=== PATIENT | female | born 1955 | race Caucasian/White ===

== ENCOUNTER → 2016-05-04 | Outpatient (CLI) | payer BC ==
--- NOTE | 2016-05-08 11:21 | MM ---
Reason for exam: screening (asymptomatic). History: Patient is postmenopausal, history of other cancer, and had first child at age 44. Benign stereotactic core biopsy of the left breast, 2004. Benign excisional biopsy of the right breast, 1999. Physical Findings: A clinical breast exam by your physician is recommended on an annual basis and results should be correlated with mammographic findings. MG Screening Mammo w CAD Bilateral CC and MLO view(s) were taken. The breast tissue is heterogeneously dense. This may lower the sensitivity of mammography. Finding: There are typically benign calcifications in both breasts. Previous mammotome biopsy in the left breast. No significant changes in finding. ASSESSMENT: Benign, BI-RAD 2 RECOMMENDATION: Routine screening mammogram of both breasts in 1 year.
== END | disposition home or self-care (01) ==
LOC: RADMAMWWP 06:54
PROVIDERS: ATTEND Obstetrics & Gynecology
DX: Z12.31 Encounter for screening mammogram for malignant neoplasm of breast (principal); Z85.820 Personal history of malignant melanoma of skin

== ENCOUNTER → 2016-06-08 | Outpatient (CLI) | payer BC ==
--- NOTE | 2016-06-08 14:44 | CT ---
EXAMINATION TYPE: CT ChestAbdPelvis wo/w con DATE OF EXAM: 06/08/2016 2:14 PM COMPARISON: Prior CT chest abdomen pelvis 01 October 2015 HISTORY: Restaging of Stage [address] DLP: 2796.8 mGycm Automated exposure control for dose reduction was used. CONTRAST: CT scan of the chest, abdomen and pelvis is performed and without and with IV Contrast, patient injec hema with 100 mL of Omnipaque 300. FINDINGS: LUNGS: The lungs are grossly clear, there is no concerning parenchymal mass or nodule identified. T here is no pleural effusion or pneumothorax seen. The tracheobronchial tree is patent. MEDIASTINUM: There are no greater than 1 cm hilar or mediastinal lymph nodes. No pericardial effusi on is seen. AORTA: No significant abnormality is seen. OTHER: No additional significant abnormality is seen. LIVER/GB: The liver shows low attenuation as on previous exam likely due to fatty infiltration, gallb ladder is normal, the liver is enlarged. PANCREAS: No significant abnormality is seen. SPLEEN: No significant abnormality is seen. ADRENALS: No significant abnormality is seen. KIDNEYS: No significant abnormality is seen. REPRODUCTIVE ORGANS: No gross abnormality seen. BOWEL: There is some thickening of the sigmoid colon which is indeterminate, difficult to exclude a mucosal lesion, there is diverticular change. There is no bowel obstruction FREE AIR: No Free Air visible. ASCITES: None seen. RETROPERITONEAL ADENOPATHY: No retroperitoneal adenopathy is seen. LYMPH NODES: Patient shows postoperative change the proximal left lower extremity compatible with nod e sampling extends into the region of the left external iliac chain URINARY BLADDER: No significant abnormality is seen. PELVIC ADENOPATHY: None visualized. OSSEOUS STRUCTURES: No significant abnormality is seen. IMPRESSION: Postop changes. Nonspecific rectosigmoid, sigmoid colonic wall thickening. Fatty infiltra tion of the liver, hepatomegaly. Additional findings above.
--- NOTE | 2016-06-08 14:52 | CT ---
CT of the left lower extremity HISTORY: Restaging of stage III melanoma, C43.9, Z 85.820 Helical acquisition obtained through the left leg pre and post intravenous contrast administration, tye avila received 100 cc Omni 300 IV and correlated to prior dated September Some subcutaneous edema changes present at the level of the patellar tendon insertion similar to prio r exam. No lytic or blastic bone lesion is evident. No fracture or dislocation. The subcutaneous fat areas of increased attenuation show a similar appearance and distribution. There is no abnormal enhan cement following contrast administration. Popliteal artery is patent, trifurcation vasculature is pat ent. There is no evident adenopathy. IMPRESSION: Stable findings, increased attenuation within the subcutaneous fat may be postprocedural or posttreatment, no abnormal enhancement.
== END | disposition home or self-care (01) ==
LOC: RADCTMAIN 12:58
PROVIDERS: ATTEND Internal Medicine
DX: K76.0 Fatty (change of) liver, not elsewhere classified (principal); R16.0 Hepatomegaly, not elsewhere classified; K63.89 Other specified diseases of intestine; C43.9 Malignant melanoma of skin, unspecified; Z98.890 Other specified postprocedural states; Z85.820 Personal history of malignant melanoma of skin
CPT/HCPCS: 73702; 71270; 74178; Q9967

== ENCOUNTER 2016-09-03 11:51 | Emergency (ER) | payer BC ==
--- NOTE | 2016-09-03 12:08 | ED ---
General Adult HPI - General Chief complaint: Extremity Problem,Nontraumatic Stated complaint: leg swelling Time Seen by Provider: 09/03/16 12:03 Source: patient, RN notes reviewed Mode of arrival: wheelchair Limitations: no limitations - History of Present Illness Initial comments: Patient 61-year-old female who presents emergency room today sent by medics breast rule out DVT. Patient does admit that she's noticed some tightness to the back of the left calf over the last 4 days. She states she thought was possible muscular. She admits that last night she saw some redness to the back area. States improved today. She does admit that she has some chronic swelling to his leg from previous surgeries. Patient denies any other complaints or symptoms. Denies any known injury or trauma. Denies any history of DVT. Patient denies any recent fever, chills, shortness of breath, chest pain , back pain, abdominal pain, nausea or vomiting, numbness or tingling, dysuria or hematuria, constipation or diarrhea, headaches or visual changes, or any other complaints. - Related Data Home Medications Medication Instructions Recorded Confirmed Calcium Carbonate/Vitamin D3 1 cap PO HS 09/03/16 09/03/16 [Calcium 500-Vit D3 600 Tablet] Cetirizine HCl [Zyrtec] 10 mg PO HS 09/03/16 09/03/16 Losartan Pot. (Unknown Dose) 1 tab PO HS 09/03/16 09/03/16 amLODIPine [Norvasc] 5 mg PO HS 09/03/16 09/03/16 valACYclovir [Valtrex] 500 mg PO HS 09/03/16 09/03/16 Previous Rx's Medication Instructions Recorded Cephalexin [Keflex] 500 mg PO Q12HR 10 Days 09/03/16 Allergies Allergy/AdvReac Type Severity Reaction Status Date / Time acetaminophen [From Vicodin] Allergy Rash/Hives Verified 09/03/16 12:21 hydrocodone [From Vicodin] Allergy Rash/Hives Verified 09/03/16 12:21 Review of Systems ROS Statement: Those systems with pertinent positive or pertinent negative responses have been documented in the HPI. ROS Other: All systems not noted in ROS Statement are negative. Past Medical History Past Medical History: Cancer, Hypertension Additional Past Medical History / Comment(s): melanoma History of Any Multi-Drug Resistant Organisms: None Reported Past Surgical History: Appendectomy, Section Past Psychological History: No Psychological Hx Reported Smoking Status: Never smoker Past Alcohol Use History: Occasional Past Drug Use History: None Reported General Exam - General Exam Comments Initial Comments: General: The patient is awake and alert, in no distress, and does not appear acutely ill. Neck: The neck is supple, there is no tenderness or JVD. Cardiovascular: There is a regular rate and rhythm. No murmur, rub or gallop is appreciated. Respiratory: Lungs are clear to auscultation, respirations are non-labored, breath sounds are equal. No wheezes, stridor, rales, or rhonchi. Musculoskeletal: Patient does have some swelling appreciated when compared bilaterally. No tenderness. No redness. Full range of motion. No bony tenderness. Sensation is intact pulses equal bilateral 2+. Neurological: A&O x 3. CN II-XII intact, There are no obvious motor or sensory deficits. Coordination appears grossly intact. Speech is normal. Skin: Skin is warm and dry and no rashes or lesions are noted. Psychiatric: Normal mood and affect. Limitations: no limitations Course Vital Signs 09/03/16 11:57 Temperature 97.8 F Pulse Rate 77 Respiratory 20 Rate Blood Pressure 139/66 O2 Sat by Pulse 98 Oximetry Medical Decision Making - Medical Decision Making Ultrasound negative for any evidence of DVT. Results were discussed with patient. She does have some mild redness to the medial aspect of the left calf. Patient will be started on Keflex cover for cellulitis. Advised to follow-up with family doctor over the next 2 days return here to the emergency room if any symptoms increase or worsen. Patient states understanding. Disposition Clinical Impression: Cellulitis Disposition: HOME SELF-CARE Condition: Good Instructions: Cellulitis (ED) Additional Instructions: Please use medication as discussed. Please follow-up with family doctor in the next 2 days of symptoms have not improved. Please return to emergency room if the symptoms increase or worsen or for any other concerns. Prescriptions: Cephalexin [Keflex] 500 mg PO Q12HR 10 Days Referrals: Tip Mendez MD [Primary Care Provider] - 1-2 days Time of Disposition: 13:21
--- NOTE | 2016-09-03 13:16 | US ---
EXAMINATION TYPE: US venous doppler duplex LE LT DATE OF EXAM: 09/03/2016 1:09 PM COMPARISON: NONE CLINICAL HISTORY: 61-year-old female Pain. Left leg pain and swelling x couple days SIDE PERFORMED: Left TECHNIQUE: The lower extremity deep venous system is examined utilizing real time linear array sonog lauren with graded compression, doppler sonography and color-flow sonography. FINDINGS: VESSELS IMAGED: External Iliac Vein (EIV) Common Femoral Vein Deep Femoral Vein Greater Saphenous Vein * Femoral Vein Popliteal Vein Small Saphenous Vein * Proximal Calf Veins (* superficial vessels) Left Leg: Appears negative for DVT IMPRESSION: No evidence for DVT within the left lower extremity imaged from the groin to the upper calf.
[2016-09-03 13:36] VITALS: BP 134/63; PULSE 68; RESP 18; TEMP 96.8
== END 2016-09-03 13:33 | disposition home or self-care (01) ==
LOC: EC 11:51
DX: L03.116 Cellulitis of left lower limb (principal); I10 Essential (primary) hypertension; Z85.820 Personal history of malignant melanoma of skin; Z79.899 Other long term (current) drug therapy; Z88.5 Allergy status to narcotic agent
CPT/HCPCS: 99283

== ENCOUNTER → 2016-12-11 | Outpatient (CLI) | payer BC ==
--- NOTE | 2016-12-11 12:36 | CT ---
EXAMINATION TYPE: CT lower extremity LT w con DATE OF EXAM: 12/11/2016 COMPARISON: 06/08/2016 HISTORY: Metastatic Melanoma CT DLP: 0174 includes Chest, Abd, and Pelvis as well mGycm Automated exposure control for dose reduction was used. CONTRAST: Performed with IV Contrast, patient injected with 100 mL of Omnipaque 300. FINDINGS: Prepatellar subcutaneous edema and infrapatellar subcutaneous edema is unchanged from the prior exam. Numerous surgical clips are seen in the most cephalad portion of the [id number] surrounding the e xternal iliac chain and extends into the femoral region and subcutaneous tissues of the mid thigh wit h linear scarring and skin defect from probable prior lymph node dissection. The arterial vasculature is patent. No adenopathy is identified. Mild degenerative changes of the left femoral acetabular russ nt are seen. No suspicious osseous lesion is present. No evidence of fracture or dislocation. IMPRESSION: 1. POSTSURGICAL CHANGES OF THE LEFT INGUINAL AND FEMORAL REGION WITH NO EVIDENCE OF RECURRENT ADENOPA THY, NEW MASS OR OSSEOUS METASTATIC LESION. 2. UNCHANGED NONSPECIFIC PREPATELLAR AND INFRAPATELLAR SUBCUTANEOUS EDEMA.
--- NOTE | 2016-12-11 12:52 | CT ---
EXAMINATION TYPE: CT ChestAbdPelvis w con DATE OF EXAM: 12/11/2016 COMPARISON: 06/08/2016 HISTORY: Metastatic Melanoma CT DLP: 2664 includes Lt leg mGycm. Automated Exposure Control for Dose Reduction was Utilized. CONTRAST: CT scan of the thorax, abdomen and pelvis is performed with IV Contrast, patient injected with 100 mL of Omnipaque 300. FINDINGS: LUNGS: The lungs are grossly clear, there is no concerning parenchymal mass or nodule identified. Li near left basilar pleural parenchymal scarring is noted. There is no pleural effusion or pneumothorax seen. The tracheobronchial tree is patent. MEDIASTINUM: There are no greater than 1 cm hilar or mediastinal lymph nodes. No pericardial effusi on is seen. OTHER: No additional significant abnormality is seen. LIVER/GB: There is diffuse hypoattenuation of the hepatic parenchyma, unchanged in the prior exam in comparison to that of the spleen compatible with mild hepatic steatosis. This finding limits evaluati on for underlying hepatic masses.. PANCREAS: No significant abnormality is seen. No ductal dilatation. SPLEEN: No significant abnormality is seen. ADRENALS: No significant abnormality is seen. KIDNEYS: Kidneys enhance symmetrically. No hydronephrosis. BOWEL: Scattered colonic diverticula are noted without pericolonic fat stranding. No evidence of obst ruction is seen. GENITAL ORGANS: No gross abnormality seen. LYMPH NODES: No greater than 1cm abdominal or pelvic lymph nodes are appreciated. As seen on the CT o f the left lower extremity there are numerous surgical clips beginning in the region of the external iliac chain and extending into the femoral region with postsurgical scar from prior probable lymph no de dissection and no recurrent or residual adenopathy. No new soft tissue density tumor is identified . OSSEOUS STRUCTURES: No suspicious osseous lesion. Minimal degenerative changes of the thoracolumbar a nd lumbosacral spine. IMPRESSION: 1. Postoperative changes of the left external iliac chain and femoral region from probable prior no d issection with no evidence of recurrent adenopathy. No evidence of visceral or osseous metastasis wit hin the chest, abdomen or pelvis. 2. Mild hepatic steatosis. 3. Colonic diverticulosis without evidence of diverticulitis.
== END | disposition home or self-care (01) ==
LOC: RADCTMAIN 09:23
PROVIDERS: ATTEND Internal Medicine
DX: C43.9 Malignant melanoma of skin, unspecified (principal); K76.0 Fatty (change of) liver, not elsewhere classified; K57.30 Diverticulosis of large intestine without perforation or abscess without bleeding; R60.0 Localized edema
CPT/HCPCS: 73701; 71260; 74177; Q9967

== ENCOUNTER → 2017-08-20 | Outpatient (CLI) | payer BC ==
--- NOTE | 2017-08-21 10:16 | MM ---
Reason for exam: screening (asymptomatic). Last mammogram was performed 1 year and 4 months ago. History: Patient is postmenopausal, history of other cancer, and had first child at age 44. Benign stereotactic core biopsy of the left breast, 2004. Benign excisional biopsy of the right breast, 1999. Physical Findings: A clinical breast exam by your physician is recommended on an annual basis and results should be correlated with mammographic findings. MG Screening Mammo w CAD Bilateral CC and MLO view(s) were taken. Prior study comparison: May 04, 2016, bilateral MG screening mammo w CAD. There are scattered fibroglandular densities. Finding: There are typically benign round, regional calcifications in the left breast. Previous mammotome biopsy in the left breast. There is no discrete abnormality. ASSESSMENT: Benign, BI-RAD 2 RECOMMENDATION: Routine screening mammogram of both breasts in 1 year.
== END | disposition home or self-care (01) ==
LOC: RADMAMWWP 10:42
PROVIDERS: ATTEND Obstetrics & Gynecology
DX: Z12.31 Encounter for screening mammogram for malignant neoplasm of breast (principal)
CPT/HCPCS: 77067

== ENCOUNTER → 2017-12-17 | Outpatient (CLI) | payer BC ==
--- NOTE | 2017-12-17 18:18 | CT ---
EXAMINATION TYPE: CT ChestAbdPelvis wo/w con DATE OF EXAM: 12/17/2017 INDICATION: Malignant melanoma of skin, left calf and left inguinal nodes. COMPARISON: 12/11/2016 CT DLP: 3005 mGycm CONTRAST: Performed with Oral Contrast and without and with IV Contrast, patient injected with 100 mL of Isovue M300. TECHNIQUE: Axial images at 5 mm thick sections. Reconstructed images in the coronal plane. Delayed images through the kidneys. FINDINGS: CT CHEST: Portion of the thyroid visualized is normal. There is a 0.8 cm area of pneumonitis within the periphery of the right midlung. This is increasing f rom comparison. Short-term follow-up is recommended. Follow-up CT chest in 6 months is recommended. No enlarged mediastinal or hilar adenopathy is evident. The ascending aorta diameter at the level of the main pulmonary artery is 3.7 cm. The main pulmonary artery diameter at the bifurcation is 2.[address] ABDOMEN: Liver: Normal Spleen: Normal Pancreas: Normal Adrenal glands: The adrenal glands are normal. Gallbladder: Normal Kidneys: No masses are evident. No hydronephrosis is present. No cysts are present. No renal stone s are evident. Aorta: Vascular calcification is within the aorta. Inferior vena cava: Normal. CT PELVIS: Multiple surgical clips are within the left inguinal region. Loops of bowel within the abdomen and pelvis are normal. There are loops of bowel which are incom pletely distended or lack oral contrast limiting their evaluation. Appendix: Normal as visualized. Urinary bladder: Normal. Genitourinary structures: Uterus and adnexa appear normal. Osseous structures: No suspicious lytic or sclerotic lesions. Sacroiliac joints have degenerative vac uum phenomenon. Facet hypertrophy is present within the lumbar spine. IMPRESSIONS: 1. Area of pneumonitis in the periphery of the right midlung. Follow-up CT chest in 6 months is recom mended.
== END | disposition home or self-care (01) ==
LOC: RADCTMAIN 11:47
PROVIDERS: ATTEND Internal Medicine
DX: C77.4 Secondary and unspecified malignant neoplasm of inguinal and lower limb lymph nodes (principal); J18.9 Pneumonia, unspecified organism
CPT/HCPCS: 71270; 74178; Q9967

== ENCOUNTER → 2018-06-24 | Outpatient (CLI) | payer BC ==
--- NOTE | 2018-06-24 17:53 | CT ---
EXAMINATION TYPE: CT ChestAbdPelvis w con DATE OF EXAM: 06/24/2018 INDICATION: Melanoma COMPARISON: 12/17/2017 CT DLP: 1911 mGycm CONTRAST: Performed with Oral Contrast and with IV Contrast, patient injected with 100 ml mL of Isovue 300. TECHNIQUE: Axial images at 5 mm thick sections. Reconstructed images in the coronal plane. Delayed images through the kidneys. FINDINGS: CT CHEST: Portion of the thyroid visualized is normal. No suspicious lung nodules or focal infiltrates are present. Vague area of pneumonitis within the per iphery of the right midlung appears smaller and less distinct from the comparison study. Series 4 catherine ge 32. No enlarged mediastinal or hilar adenopathy is evident. The ascending aorta diameter at the level of the main pulmonary artery is 3.5 cm. The main pulmonary artery diameter at the bifurcation is 2.[address] ABDOMEN: Liver: There is mild to moderate fatty infiltration throughout the liver. Spleen: Normal Pancreas: Normal Adrenal glands: The adrenal glands are normal. Gallbladder: Normal Kidneys: No masses are evident. No hydronephrosis is present. No cysts are present. Delayed images were obtained through the kidneys, which remain unremarkable. Aorta: Normal Inferior vena cava: Normal. CT PELVIS: Loops of bowel within the abdomen and pelvis are normal. There are loops of bowel which are incom pletely distended or lack oral contrast limiting their evaluation. Appendix: Not visualized. No suspicious inflammatory changes are evident. Urinary bladder: Normal. Genitourinary structures: Uterus appears normal. Adnexal regions are clear. No free fluid is within t he pelvis. Osseous structures: No suspicious lytic or sclerotic lesions. Sacroiliac joint degenerative change an d facet degenerative changes are present. IMPRESSIONS: 1. No suspicious changes suggestive for metastatic disease. 2. Small area of pneumonitis periphery of the right midlung appears somewhat smaller and less dense t luo the comparison. No interval increase is identified.
== END | disposition home or self-care (01) ==
LOC: RADCTMAIN 07:27
PROVIDERS: ATTEND Internal Medicine
DX: J18.9 Pneumonia, unspecified organism (principal); C43.9 Malignant melanoma of skin, unspecified
CPT/HCPCS: 71260; 74177; Q9967 ×2

== ENCOUNTER → 2018-08-21 | Outpatient (CLI) | payer BC ==
--- NOTE | 2018-08-22 11:40 | MM ---
Reason for exam: screening (asymptomatic). Last mammogram was performed 1 year ago. History: Patient is postmenopausal, history of other cancer, and had first child at age 44. Benign stereotactic core biopsy of the left breast, 2004. Benign excisional biopsy of the right breast, 1999. Physical Findings: A clinical breast exam by your physician is recommended on an annual basis and results should be correlated with mammographic findings. MG Screening Mammo w CAD Bilateral CC and MLO view(s) were taken. Prior study comparison: August 20, 2017, bilateral MG screening mammo w CAD. May 04, 2016, bilateral MG screening mammo w CAD. There are scattered fibroglandular densities. Finding: There are typically benign round, diffuse/scattered and round calcifications. Previous mammotome biopsy in the left breast. There is no discrete abnormality. ASSESSMENT: Benign, BI-RAD 2 RECOMMENDATION: Routine screening mammogram of both breasts in 1 year.
== END | disposition home or self-care (01) ==
LOC: RADMAMWWP 07:46
PROVIDERS: ATTEND Obstetrics & Gynecology
DX: Z12.31 Encounter for screening mammogram for malignant neoplasm of breast (principal)
CPT/HCPCS: 77067

== ENCOUNTER → 2018-12-17 | Outpatient (CLI) | payer BC ==
--- NOTE | 2018-12-17 11:35 | CT ---
EXAMINATION TYPE: CT ChestAbdPelvis w con DATE OF EXAM: 12/17/2018 COMPARISON: 06/24/2018 CT chest, abdomen, and pelvis and 12/17/2017 HISTORY: Metastatic melanoma CT DLP: 1600.5 mGycm. Automated Exposure Control for Dose Reduction was Utilized. CONTRAST: CT scan of the thorax, abdomen and pelvis is performed with IV Contrast, patient injected with 100 mL of Isovue 300. FINDINGS: LUNGS: There is a stable groundglass nodule along the right minor fissure measuring 6.6 mm on series 4 image 27. No new suspicious pulmonary nodules or masses are seen. Pleural parenchymal scarring christal g the left major fissure in the superior segment of the left lower lobe on image 17 is minimal. Scatt ered areas of pleural parenchymal scarring in the left lung base are also seen such as on image 39 wi th few scattered areas of bilateral subsegmental atelectasis. Focal consolidation or pleural effusion . MEDIASTINUM: Incidentally noted bovine configuration of the aortic arch. Few coronary artery calcific ations are typically seen given phase of contrast. There are no greater than 1 cm hilar or mediastina l lymph nodes. No pericardial effusion is seen. OTHER: Thyroid gland is again slightly heterogenous in the isthmus and left lobe. LIVER/GB: Hepatic parenchyma is diffusely hypoattenuated in comparison to that of the spleen, most co mmonly seen in hepatic steatosis. This finding limits evaluation for hepatic masses. No gross evidenc e of hepatic mass is seen. No intrahepatic biliary ductal dilatation. No cholelithiasis PANCREAS: No significant abnormality is seen. SPLEEN: No significant abnormality is seen. No splenomegaly. ADRENALS: No new nodules or thickening. KIDNEYS: Kidneys enhance and excrete symmetrically without hydronephrosis or suspicious solid mass. BOWEL: There are scattered colonic diverticula without pericolonic fat stranding. No dilated large or small bowel. Appendix is surgically absent. LYMPH NODES: No greater than 1cm abdominal or pelvic lymph nodes are appreciated. OSSEOUS STRUCTURES: Mild multilevel degenerative changes of the spine, sacroiliac joints and hips. OTHER: Postsurgical changes seen along the left pelvic sidewall and left external iliac chain into th e left groin and medial left upper thigh with linear scarring and granulation tissue. No new masslike density or complexity. No new suspicious area of enhancement. No new adenopathy locally. Abdominal aorta is of normal course and caliber with mild atherosclerosis. IMPRESSION: 1. No new evidence of visceral or osseous metastasis. No new adenopathy in the chest, abdomen, or pel vis. 2. Surgical resection along the left iliac region and upper medial thigh without new area of enhancem ent or nodularity. 3. Stable groundglass pulmonary nodule along the right minor fissure. No new pulmonary nodules.
== END | disposition home or self-care (01) ==
LOC: RADCTMAIN 08:54
PROVIDERS: ATTEND Internal Medicine
DX: C43.9 Malignant melanoma of skin, unspecified (principal); R91.1 Solitary pulmonary nodule
CPT/HCPCS: 71260; 74177; Q9967 ×2

== ENCOUNTER → 2019-11-17 | Outpatient (CLI) | payer BC ==
--- NOTE | 2019-11-17 14:49 | CT ---
EXAMINATION TYPE: CT ChestAbdPelvis w con DATE OF EXAM: 11/17/2019 COMPARISON: 12/17/2018 HISTORY: Malignant melanoma low left leg. To include hip. CT DLP: 1619 mGycm Automated exposure control for dose reduction was used. CONTRAST: CT scan of the chest, abdomen and pelvis is performed with Oral Contrast and with IV Contrast, patien t injected with 100 mL of Isovue M300. FINDINGS: LUNGS: There is a stable 3 mm nodule posterior subpleural location right upper lobe and a 2 mm nodule posterior left upper lobe on image 14 and 15 respectively. Faint subsegmental areas of consolidation . No pleural effusion or pneumothorax. No focal pneumonia.. MEDIASTINUM: There are no greater than 1 cm hilar or mediastinal lymph nodes. No pericardial effusi on is seen. Bovine arch configuration incidentally noted. OTHER: Thyroid gland remains mildly heterogeneous. Is a small subcutaneous nodule extending the epid ermis measuring 1 cm at the level of the axilla. Correlate clinically. LIVER/GB: Hepatic parenchyma is diffusely hypoattenuated in comparison to that of the spleen, most co mmonly seen in hepatic steatosis. This finding limits evaluation for hepatic masses. No gross evidenc e of hepatic mass is seen. No intrahepatic biliary ductal dilatation. No cholelithiasis PANCREAS: No significant abnormality is seen. SPLEEN: No significant abnormality is seen. ADRENALS: No significant abnormality is seen. KIDNEYS: Hypodensities in the kidneys are too small to characterize. No hydronephrosis. BOWEL: There are scattered colonic diverticula without pericolonic fat stranding. No dilated large o r small bowel. Appendix is surgically absent LYMPH NODES: No greater than 1 cm abdominal or pelvic lymph nodes are appreciated. OSSEOUS STRUCTURES: Hypertrophic and degenerative changes spine with facet arthropathy. Grade 1 anter olisthesis L4 on L5 OTHER: Abdominal aorta of normal caliber. Surgical change in the left groin noted extending into the left pelvis. Soft tissue density axial image 98 most likely related to a ovary and stable from prior exam IMPRESSION: 1. No evidence of new pathologic adenopathy. 2. There are sub-5 mm subpleural nodules in the upper lobes which are retrospectively stable from the prior exam as discussed above. 3. Postsurgical change along the left iliac chain. 4. There is a 9 mm subcutaneous nodule extending from the epidermis on axial image 4 at the level of the left axilla. Correlate with physical exam. Nodules too small to determine but appears to be solid .
== END | disposition home or self-care (01) ==
LOC: RADCTMAIN 12:27
PROVIDERS: ATTEND Internal Medicine
DX: R91.8 Other nonspecific abnormal finding of lung field (principal); C43.72 Malignant melanoma of left lower limb, including hip; C77.9 Secondary and unspecified malignant neoplasm of lymph node, unspecified; Z98.890 Other specified postprocedural states
CPT/HCPCS: 71260; 74177; Q9967 ×2

== ENCOUNTER → 2020-03-15 | Outpatient (CLI) | payer BC ==
--- NOTE | 2020-03-15 16:40 | BD ---
EXAMINATION TYPE: Axial Bone Density DATE OF EXAM: 03/15/2020 COMPARISON: NONE CLINICAL HISTORY: Postmenopausal screening Height: 64 IN Weight: 205 LBS FRAX RISK QUESTIONS: Family History (Parent hip fracture): MOM RISK FACTORS HISTORY OF: Active: YES Postmenopausal woman: AGE 55 MEDICATIONS: Additional Medications: VIT D, HIGH BLOOD PRESSURE MEDS, LOSARTAN, VALTREX, Additional History: MELANOMA WITH CHEMO AND IMMUNOTHERAPY EXAM MEASUREMENTS: Bone mineral densitometry was performed using the [email or web address] System. Bone mineral density as measured about the Lumbar spine is: ----- L1-L4(G/cm2): 1.270 T Score Values are as follows: ----- L2: 0.0 ----- L3: 1.1 ----- L4: 0.7 ----- L1-L4: 0.7 Bone mineral density BASELINE Bone mineral density about the R hip (g/cm2): 1.000 Bone mineral density about the L hip (g/cm2): 1.042 T Score values are as follows: -----R Neck: -0.3 -----L Neck: 0.0 -----R Total: 1.1 -----L Total: 1.4 Bone mineral density BASELINE IMPRESSION: Normal (Values between +1 and -1 indicate normal bone mass). Consider repeating this study in 5 year s or sooner if there is some new clinical indication. NOTE: T-SCORE=SD OF THE YOUNG ADULT MEAN.
--- NOTE | 2020-03-16 13:30 | MM ---
Reason for exam: screening (asymptomatic). Last mammogram was performed 1 year and 7 months ago. History: Patient is postmenopausal, history of other cancer, and had first child at age 44. Benign stereotactic core biopsy of the left breast, 2004. Benign excisional biopsy of the right breast, 1999. Physical Findings: A clinical breast exam by your physician is recommended on an annual basis and results should be correlated with mammographic findings. MG Screening Mammo w CAD Bilateral CC and MLO view(s) were taken. Prior study comparison: August 21, 2018, bilateral MG screening mammo w CAD. August 20, 2017, bilateral MG screening mammo w CAD. There are scattered fibroglandular densities. No significant changes when compared with prior studies. ASSESSMENT: Benign, BI-RAD 2 RECOMMENDATION: Routine screening mammogram of both breasts in 1 year.
== END | disposition home or self-care (01) ==
LOC: RADMAMWWP 14:32
PROVIDERS: ATTEND Obstetrics & Gynecology
DX: Z12.31 Encounter for screening mammogram for malignant neoplasm of breast (principal); N95.1 Menopausal and female climacteric states; M85.88 Other specified disorders of bone density and structure, other site
CPT/HCPCS: 77067; 77080

== ENCOUNTER → 2021-03-16 | Outpatient (CLI) | payer BC ==
--- NOTE | 2021-03-17 12:37 | MM ---
Reason for exam: screening (asymptomatic). Last mammogram was performed 1 year ago. History: Patient is postmenopausal, history of other cancer, and had first child at age 44. Benign stereotactic core biopsy of the left breast, 2004. Benign excisional biopsy of the right breast, 1999. Physical Findings: A clinical breast exam by your physician is recommended on an annual basis and results should be correlated with mammographic findings. MG Screening Mammo w CAD Bilateral CC and MLO view(s) were taken. Prior study comparison: March 15, 2020, bilateral MG screening mammo w CAD. August 21, 2018, bilateral MG screening mammo w CAD. There are scattered fibroglandular densities. There are benign appearing round calcifications bilaterally. Previous mammotome biopsy in the left breast. There is chronic nodularity in the left breast. There is no discrete abnormality. ASSESSMENT: Benign, BI-RAD 2 RECOMMENDATION: Routine screening mammogram of both breasts in 1 year.
== END | disposition home or self-care (01) ==
LOC: RADMAMWWP 11:16
PROVIDERS: ATTEND Obstetrics & Gynecology
DX: Z12.31 Encounter for screening mammogram for malignant neoplasm of breast (principal)
CPT/HCPCS: 77067

== ENCOUNTER → 2023-03-19 | Outpatient (CLI) | payer MEDICARE ==
--- NOTE | 2023-03-20 22:22 | MM ---
Reason for Exam: Screening (asymptomatic). Last screening mammogram was performed 12 month(s) ago. Patient History: Menarche at age 14. First Full-Term at age 44. Late child-bearing (after 30). Postmenopausal. Other cancer. 2004, Benign Stereotactic Core Biopsy on the left side. 1999, Benign Excisional Biopsy on the right side. Risk Values: Nathalia 5 year model risk: 3.4%. NCI Lifetime model risk: 12.6%. Prior Study Comparison: 03/15/2020 Bilateral Screening Mammogram, [facility]. 03/16/2021 Bilateral Screening Mammogram, [facility]. 03/17/2022 Bilateral MG screening mammo w CAD, [facility]. Tissue Density: There are scattered fibroglandular densities. Findings: Analyzed By CAD. Chronic nodularity medial left CC view. Central subareolar nodularity on the left has increased are become more defined and persists on 3-D images. Further evaluation is recommended. Overall Assessment: Incomplete: need additional imaging evaluation, BI-RAD 0 Management: Special View Mammogram of the left breast. Diagnostic Breast Ultrasound of the left breast. . [facility] will attempt to contact patient to return for supplemental views and ultrasound if indicated. Electronically signed and approved by: Fran Dunn M.D. Radiologist
== END | disposition home or self-care (01) ==
LOC: RADMAMWWP 10:32
PROVIDERS: ATTEND Obstetrics & Gynecology
DX: Z12.31 Encounter for screening mammogram for malignant neoplasm of breast (principal); Z78.0 Asymptomatic menopausal state
CPT/HCPCS: 77063; 77067

== ENCOUNTER → 2023-03-23 | Outpatient (CLI) | payer MEDICARE ==
--- NOTE | 2023-03-23 07:39 | MM ---
Reason for Exam: Additional evaluation requested from abnormal screening. Last screening mammogram was performed less than 1 month ago. Patient History: Menarche at age 14. First Full-Term at age 44. Late child-bearing (after 30). Postmenopausal. Other cancer. 2004, Benign Stereotactic Core Biopsy on the left side. 1999, Benign Excisional Biopsy on the right side. Risk Values: Nathalia 5 year model risk: 3.4%. NCI Lifetime model risk: 12.6%. Prior Study Comparison: 03/16/2021 Bilateral Screening Mammogram, [facility]. 03/17/2022 Bilateral MG screening mammo w CAD, [facility]. 03/19/2023 Bilateral MG 3D screening mammo w/cad, [facility]. Tissue Density: Left: There are scattered fibroglandular densities. Findings: Analyzed By CAD. A 7 mm circumscribed subareolar nodule persists on additional views. Further ultrasound evaluation is recommended. Overall Assessment: Incomplete: need additional imaging evaluation, BI-RAD 0 Management: Diagnostic Breast Ultrasound of the left breast. Electronically signed and approved by: Fran Dunn M.D. Radiologist
--- NOTE | 2023-03-23 08:31 | USB ---
Reason for Exam: Additional evaluation requested from abnormal screening. Patient History: Menarche at age 14. First Full-Term at age 44. Late child-bearing (after 30). Postmenopausal. Other cancer. 2004, Benign Stereotactic Core Biopsy on the left side. 1999, Benign Excisional Biopsy on the right side. Risk Values: Nathalia 5 year model risk: 3.4%. NCI Lifetime model risk: 12.6%. Technique: Method: Targeted. Prior Study Comparison: 03/16/2021 Bilateral Screening Mammogram, [facility]. 03/17/2022 Bilateral MG screening mammo w CAD, [facility]. 03/19/2023 Bilateral MG 3D screening mammo w/cad, [facility]. Findings: The upper section of the breast of the left breast, the axilla of the left breast and the retroareolar of the left breast were scanned. Targeted ultrasound subareolar and periareolar left breast. Including thinning of the axilla. At the 11:00 periareolar region, 3 cm from the nipple, there is a cyst cluster complex cyst measuring 6 x 6 x 3 mm, probable mammographic correlate. Six-month follow-up mammogram recommended. No other solid or cystic lesion. A benign lymph node with fatty hilum is noted at the axilla. Overall Assessment: Probably benign, BI-RAD 3 Management: Diagnostic Mammogram of the left breast in 6 months. See note below in regards to patient's increased 5 year Nathalia score. A clinical breast exam by your physician is recommended on an annual basis and results should be correlated with mammographic findings. This exam should not preclude additional follow-up of suspicious palpable abnormalities. Results were given to the patient verbally at the time of exam. Note on Nathalia scores and lifetime risk: 1. A Nathalia score greater than 3% is considered moderate risk. If this is the case, consider specialist referral to assess eligibility for a risk reducing agent. 2. If overall lifetime risk for the development of breast cancer is 20% or higher, the patient may qualify for future screening with alternating mammogram and breast MRI. Electronically signed and approved by: Fran Dunn M.D. Radiologist
== END | disposition home or self-care (01) ==
LOC: RADMAMWWP 06:54
PROVIDERS: ATTEND Obstetrics & Gynecology
DX: R92.322 Mammographic fibroglandular density, left breast (principal); R92.8 Other abnormal and inconclusive findings on diagnostic imaging of breast; Z78.0 Asymptomatic menopausal state
CPT/HCPCS: 77065; 76642; G0279; 77061

== ENCOUNTER → 2023-11-06 | Outpatient (CLI) | payer MEDICARE ==
--- NOTE | 2023-11-06 08:11 | MM ---
Reason for Exam: Follow-up at short interval from prior study. Last screening mammogram was performed 8 month(s) ago. Patient History: Menarche at age 14. First Full-Term at age 44. Late child-bearing (after 30). Postmenopausal. Other cancer. 2004, Benign Stereotactic Core Biopsy on the left side. 1999, Benign Excisional Biopsy on the right side. Risk Values: Nathalia 5 year model risk: 3.5%. NCI Lifetime model risk: 12.1%. Prior Study Comparison: 03/17/2022 Bilateral MG screening mammo w CAD, [facility]. 03/19/2023 Bilateral MG 3D screening mammo w/cad, [facility]. 03/23/2023 Left MG 3D work up w/cad , [facility]. Tissue Density: Left: The breasts are heterogeneously dense, which may obscure small masses. Findings: Analyzed By CAD. Nodular density left breast upper slightly inner quadrants percent is unchanged dating back 03/16/21 and is confirmed that is suspicious clustering recent ultrasound. No further follow-up is necessary. Scattered benign calcifications are unchanged. No new masses or nodules evident. Overall Assessment: Benign, BI-RAD 2 Management: Screening Mammogram of both breasts in 6 months. . Results were given to the patient verbally at the time of exam. Patient should continue monthly self-breast exams. A clinical breast exam by your physician is recommended on an annual basis. This exam should not preclude additional follow-up of suspicious palpable abnormalities. Note on Nathalia scores and lifetime risk: 1. A Nathalia score greater than 3% is considered moderate risk. If this is the case, consider specialist referral to assess eligibility for a risk reducing agent. 2. If overall lifetime risk for the development of breast cancer is 20% or higher, the patient may qualify for future screening with alternating mammogram and breast MRI. [facility], , 11/06/2023 8:07 AM. Electronically signed and approved by: George Baker M.D. Radiologis
== END | disposition home or self-care (01) ==
LOC: RADMAMWWP 07:49
PROVIDERS: ATTEND Family Medicine
DX: R92.8 Other abnormal and inconclusive findings on diagnostic imaging of breast
CPT/HCPCS: 77061; 77065